=== PATIENT | female | born 1965 | race Caucasian/White ===

== ENCOUNTER 2023-10-08 06:31 | Day surgery (SDC) | payer MEDICAID ==
[~2023-10-08] VITALS: Ht 153.7 cm; Wt 62.2 kg
[2023-10-08] MEDS ORDERED: PROPOFOL 1% 20 ML VIAL IVP ONE (06:35)
[2023-10-08] MEDS ORDERED: LIDOCAINE/PF 2% 5 ML VIAL ONE (06:35)
[2023-10-08] MEDS ORDERED: SODIUM CHLORIDE 0.9% 1,000 ML ONE (06:38)
[2023-10-08] MEDS ORDERED: FLUMAZENIL 0.1 MG/ML 5 ML VIAL IVP ONE (07:28)
[2023-10-08] MEDS ORDERED: SIMETHICONE DROPS 40 MG/0.6 ML SOLUTION 30 ML ONE (07:28)
[2023-10-08] MEDS ORDERED: SODIUM TETRADECYL SULFATE 3% 60 MG/2 ML VIAL IVP ONE (07:28)
[2023-10-08] MEDS ORDERED: DiphenhydrAMINE HCL 50 MG/ML VIAL ONE (07:28)
[2023-10-08] MEDS ORDERED: NALOXONE HCL 0.4 MG/ML VIAL ONE (07:28)
[2023-10-08] MEDS ORDERED: EPINEPHrine 1:10,000 [1 MG/10 ML] SYRINGE ONE (07:28)
[2023-10-08] MEDS ORDERED: ATROPINE SULFATE 0.1 MG/ML 10 ML SYRINGE IVP ONE (07:28)
[2023-10-08] MEDS: SODIUM CHLORIDE 0.9% 1,000 ML IV ONE (07:56)
== END 2023-10-08 11:10 | disposition home or self-care (01) ==
LOC: SURGERY 06:31
PROVIDERS: ATTEND Internal Medicine Gastroenterology
DX: R10.13 Epigastric pain (principal); K29.50 Unspecified chronic gastritis without bleeding; K31.89 Other diseases of stomach and duodenum; K44.9 Diaphragmatic hernia without obstruction or gangrene; K59.00 Constipation, unspecified; E78.5 Hyperlipidemia, unspecified; I10 Essential (primary) hypertension; E66.3 Overweight; Z79.899 Other long term (current) drug therapy; Z90.49 Acquired absence of other specified parts of digestive tract; Z86.010 Personal history of colon polyps
CPT/HCPCS: 43239; 88305; 88312; 88313; J0461; J2704; J1200; J0171; J3490 ×2; J2310; Q9967; J7030